=== PATIENT | female | born 1940 | race Caucasian/White ===

== ENCOUNTER 2016-08-14 05:17 | Emergency (ER) | payer OTHER, BC ==
--- NOTE | 2016-08-14 06:11 | EDPHY ---
[id number] sinus pain and pressure which has been present for the last several days which is getting progressively worse. This is associated with nasal congestion. She has a prior history of sinusitis. This morning, when she awoke from sleep she coughed up bloody mucus 1 time. She has not had any cough or fever. She does not have any sore throat. REVIEW OF SYSTEMS Constitutional: No fever, no chills. Eyes: No discharge. ENT: No sore throat. Cardiovascular: No chest pain, no palpitations. Respiratory: No cough, no shortness of breath. Gastrointestinal: No abdominal pain, no vomiting. Genitourinary: No hematuria. Musculoskeletal: No back pain. Skin: No rashes. Neurological: No headache. PMHx: Sarcoidosis, gout PHYSICAL General Appearance: Alert, no distress Eyes: Pupils equal and round no pallor or injection ENT, Mouth: Mucous membranes moist, mild maxillary sinus tenderness to palpation , posterior pharynx is clear Respiratory: There are no retractions, lungs are clear to auscultation Cardiovascular: Regular rate and rhythm Gastrointestinal: Abdomen is soft and non-tender, no masses, bowel sounds normal Neurological: A&O, moves all extremities Skin: Warm and dry, no rashes Musculoskeletal: Neck is supple non tender Extremities: symmetrical, full range of motion Psychiatric: Patient is oriented X 3, there is no agitation Source: Patient - Personal History Current Tetanus/Diphtheria Vaccine: Yes Current Tetanus Diphtheria and Acellular Pertussis (TDAP): Yes - Medical/Surgical History Hx Asthma: No Hx Chronic Respiratory Disease: Yes Hx Diabetes: Yes Hx Cardiac Disease: Yes Hx Renal Disease: No Hx Cirrhosis: No Hx Alcoholism: No Hx HIV/AIDS: No Hx Splenectomy or Spleen Trauma: No Other PMH: SARCODOSIS, D.M., GOUT, HTN, HIGH CHOLESTEROL, SLEEP APNIA, SHOULDER SURGERY - Social History Smoking Status: Never smoked Constitutional: Initial Vital Signs Temperature (C) 36.6 C 08/14/16 05:20 Heart Rate 85 08/14/16 05:20 Respiratory Rate 18 08/14/16 05:20 Blood Pressure 160/71 H 08/14/16 05:20 O2 Sat (%) 98 08/14/16 05:20 O2 Delivery Mode Room Air Allergies/Adverse Reactions: No Known Allergies Allergy (Unverified 08/14/16 05:25) Home Medications: Medication Instructions Recorded Allopurinol [Allopurinol 300 MG 300 mg PO DAILY 08/14/16 (RX)] Amoxicillin/Clavulanate Pot 875 mg PO BID #14 tab 08/14/16 [Augmentin 875 MG TAB (*)] Aspirin [Chad Chewable] 81 mg PO DAILY 08/14/16 Estrogens, Conjugated [Premarin] 08/14/16 Metformin HCl 500 mg PO 08/14/16 Valsartan/Hydrochlorothiazide 1 each PO 08/14/16 [Valsartan-Hctz 320-12.5 mg Tab] predniSONE 5 mg PO DAILY 08/14/16 Medical Decision Making - Diagnostics Imaging: Chest x-ray demonstrates peribronchial thickening, interpreted by me, radiology interpretation is pending. Differential Diagnosis: This is a 76-year-old female who presents after coughing up bloody mucus 1 time upon awakening this morning. She has no further cough. She has been suffering from sinusitis with mild epistaxis with this. She does have a history of sarcoidosis. Differential diagnosis includes sinusitis with epistaxis causing postnasal drip which produced bloody sputum, bronchiectasis, less likely pulmonary embolism. I a plan to discharge her to home with a course of Augmentin for sinusitis. I do not believe this is related to her sarcoidosis given single episode with no coughing in general. - Data Points Medications Given: Discontinued Medications Amoxicillin/Clavulanate Potassium (Augmentin 875mg) 875 mg PO EDNOW ONE PRN Reason: Protocol Stop: 08/14/16 06:15 Last Admin: 08/14/16 06:19 Dose: 875 mg Departure - Departure Disposition: Home, Routine, Self-Care Clinical Impression: Sinusitis, Coughing up blood Condition: Good Instructions: Sinusitis (ED) Additional Instructions: Please return to the emergency room if your worse in any way. You can try a saline nasal spray to help with your nasal congestion. Referrals: Ann Ochoa MD [Non Staff Provider (MD)] - As per Instructions Prescriptions: Amoxicillin/Clavulanate Pot [Augmentin 875 MG TAB (*)] 875 mg PO BID #14 tab
[2016-08-14] MEDS ORDERED: AMOXICILLIN/CLAVULANATE POT 875/125 MG TAB PO ONE (06:14)
[2016-08-14 06:27] VITALS: BP 127/66; PULSE 82; RESP 16; TEMP 98.4; O2SAT 95
--- NOTE | 2016-08-14 09:04 | DX ---
"Chest, PA and Lateral Views, at 5:14 a.m. Clinical History: 76-year-old female with a history of sarcoidosis and hemoptysis. Comparison Study: None available. Findings: The cardiac size is at the upper limits of normal. There is some bronchovascular crowding i n the left suprahilar and right lateral midlung regions, which could represent subsegmental atelectas is versus early infiltrates. Minimal linear scarring in the lateral left midlung is seen. There is no convincing focal infiltrate. There is no pleural effusion, peripheral interstitial edema, or pneumot horax. There are postcholecystectomy clips in right upper quadrant of the abdomen. There are senescen t features of the spine. There is atherosclerotic calcification of the aortic knob. There are couple of equivocal nodular opacities in the right upper lobe. Given the patient's prior history of sarcoido sis, correlation with previous imaging studies would be helpful to assess for more specific interval change. If unavailable, further follow up with CT imaging could be considered, as clinically directed . Impression: 1. Perihilar bronchitis. 2. Possible subsegmental atelectasis versus early infiltrates right lateral midlung and left suprahil ar distribution. 3. There are couple of possible small nodular opacities in the right upper lobe. Recommendation: 1. Correlation with previous studies to assess for interval change. 2. If unavailable, CT imaging could be considered. A Follow-Up Required test result has been communicated via the [employer] | Critical Result syst em on 08/14/2016 8:58, Message ID [id number]."
== END 2016-08-14 06:27 | disposition home or self-care (01) ==
DX: R04.2 Hemoptysis (principal); J32.9 Chronic sinusitis, unspecified; E11.9 Type 2 diabetes mellitus without complications; I10 Essential (primary) hypertension; Z79.82 Long term (current) use of aspirin

== ENCOUNTER → 2016-12-18 | Outpatient (CLI) | payer OTHER, BC | LOC: FIMAGING 07:42 | PROVIDERS: ATTEND Internal Medicine Critical Care Medicine | DX: D86.0 Sarcoidosis of lung (principal); I25.10 Atherosclerotic heart disease of native coronary artery without angina pectoris ==

== ENCOUNTER → 2017-04-23 | Outpatient (CLI) | payer OTHER, BC | LOC: FIMAGING 10:50 | PROVIDERS: ATTEND Internal Medicine Endocrinology, Diabetes & Metabolism | DX: Z13.820 Encounter for screening for osteoporosis (principal); M85.80 Other specified disorders of bone density and structure, unspecified site ==

== ENCOUNTER → 2017-05-21 | Outpatient (CLI) | payer OTHER, BC | LOC: FIMAGING 10:43 | PROVIDERS: ATTEND Internal Medicine | DX: Z12.31 Encounter for screening mammogram for malignant neoplasm of breast (principal) | CPT/HCPCS: G0202 ==

== ENCOUNTER → 2017-07-20 | Outpatient (CLI) | payer OTHER, BC | LOC: FLAB 10:59 | PROVIDERS: ATTEND Internal Medicine Critical Care Medicine | DX: D86.0 Sarcoidosis of lung (principal) ==

== ENCOUNTER → 2017-12-15 | Outpatient (CLI) | payer OTHER, BC | LOC: FIMAGING 08:42 | PROVIDERS: ATTEND Internal Medicine Critical Care Medicine | DX: D86.0 Sarcoidosis of lung (principal); E83.52 Hypercalcemia ==

== ENCOUNTER → 2018-04-29 | Outpatient (CLI) | payer OTHER, BC | LOC: FIMAGING 10:24 | PROVIDERS: ATTEND Internal Medicine Critical Care Medicine | DX: D86.0 Sarcoidosis of lung (principal) ==

== ENCOUNTER → 2018-06-23 | Outpatient (CLI) | payer OTHER, BC | END | disposition home or self-care (01) | LOC: FIMAGING 09:34 | PROVIDERS: ATTEND Internal Medicine | DX: Z12.31 Encounter for screening mammogram for malignant neoplasm of breast (principal) ==

== ENCOUNTER 2018-10-09 06:46 | Emergency (ER) | payer OTHER, BC ==
--- NOTE | 2018-10-09 07:20 | EDPHY ---
HPI/HX/ROS/PE/MDM Narrative: CHIEF COMPLAINT: Diarrhea, bright blood per rectum HPI: This patient is a 78-year-old female with past medical history including hypertension, hyperlipidemia, diabetes, sarcoidosis. She complains of diarrhea ongoing for 3 days with very watery stool. She additionally complains of bright red blood per rectum. No melena. She endorses history of bleeding hemorrhoids in the past. She saw Dr. Estrella, supervisor landscape, in July, who prescribed a cream for relief. She denies vomiting, abdominal pain. She has not taken any antibiotics recently. No known ill contacts. She is not anticoagulated, takes ASA 81mg. She notes she attended a dance performance at [facility] last night and was able to walk about a mile there and back without difficulty. No chest pain, shortness of breath, weakness, or other associated symptoms. REVIEW OF SYSTEMS: A comprehensive 10 system review of systems is otherwise negative aside from elements mentioned in the history of present illness and medical decision making. PMH: Hypertension, sarcoidosis, diabetes, hyperlipidemia, sleep apnea SOCIAL HISTORY: . at bedside. Lives in [place]. Retired. PHYSICAL EXAM: General:Patient is alert, in no acute distress. ENT:Eyes are normal to inspection. ENT inspection normal. Neck: Normal inspection. Full range of motion. Respiratory:No respiratory distress. Breath sounds normal bilaterally. Cardiovascular: Regular rate and rhythm. Strong peripheral pulses. Normal cap refill. Abdomen:The abdomen is nontender to palpation. There are no peritoneal signs. There are normal bowel sounds. Back: Normal to inspection. No tenderness to palpation. Skin: Normal color. No rash. Warm and dry. Extremities: Normal appearance. Full range of motion. Neuro: Oriented x3. Normal motor function. Normal sensory function. ED Course: 78 y/o female presents with 3-4 day history of diarrhea and bright red blood per rectum which she states is consistent with her history of bleeding hemorrhoids. No abdominal tenderness on exam. Plan for labs including CBC, chemistries, co-ag panel. Patient has given a stool sample, plan for stool PCR. Plan to administer 1L IV NS. Reviewed laboratory studies. These are largely unremarkable. Stool PCR pending. Stool PCR negative. On re-evaluation at 10:45am, the patient tells me "I'm going home. I don't have anything that won't heal itself." She is very pleasant and comfortable on re-exam. There is no evidence of C diff or serious infectious diarrhea. The patient has a benign abdomen. She is not anemic. She does not appear significantly dehydrated. Is certainly possible that the rectal bleeding she is attributing to hemorrhoids may in fact represent a GI bleed, but her description of it as very bright red blood in consistent with hemorrhoids is reassuring. She is not interested in further workup at this time. We discussed strict return precautions and need for outpatient follow-up. - Data Points Laboratory Results: Laboratory Results 10/09/18 07:34 10/09/18 07:34 10/09/18 10/09/18 10/09/18 07:34 07:34 07:34 WBC 9.00 10^3/uL 10^3/uL (3.80-9.50) RBC 4.24 10^6/uL 10^6/uL (4.18-5.33) Hgb 13.2 g/dL g/dL (12.6-16.3) Hct 39.1 % % (38.0-47.0) MCV 92.2 fL fL (81.5-99.8) MCH 31.1 pg pg (27.9-34.1) MCHC 33.8 g/dL g/dL (32.4-36.7) RDW 15.5 % H % (11.5-15.2) Plt Count 237 10^3/uL 10^3/uL (150-400) MPV 10.8 fL fL (8.7-11.7) Neut % (Auto) 69.0 % % (39.3-74.2) Lymph % (Auto) 17.1 % % (15.0-45.0) Toole % (Auto) 8.7 % % (4.5-13.0) Eos % (Auto) 4.4 % % (0.6-7.6) Baso % (Auto) 0.6 % % (0.3-1.7) Nucleat RBC Rel Count 0.0 % % (0.0-0.2) Absolute Neuts (auto) 6.21 10^3/uL 10^3/uL (1.70-6.50) Absolute Lymphs (auto) 1.54 10^3/uL 10^3/uL (1.00-3.00) Absolute Monos (auto) 0.78 10^3/uL 10^3/uL (0.30-0.80) Absolute Eos (auto) 0.40 10^3/uL 10^3/uL (0.03-0.40) Absolute Basos (auto) 0.05 10^3/uL 10^3/uL (0.02-0.10) Absolute Nucleated RBC 0.00 10^3/uL 10^3/uL (0-0.01) Immature Gran % 0.2 % % (0.0-1.1) Immature Gran # 0.02 10^3/uL 10^3/uL (0.00-0.10) PT 13.8 SEC SEC (12.0-15.0) INR 1.10 (0.83-1.16) APTT 33.6 SEC SEC (23.0-38.0) Sodium 140 mEq/L mEq/L (135-145) Potassium 4.1 mEq/L mEq/L (3.5-5.2) Chloride 105 mEq/L mEq/L (97-110) Carbon Dioxide 22 mEq/l mEq/l (22-31) Anion Gap 13 mEq/L mEq/L (6-14) BUN 24 mg/dL H mg/dL (7-23) Creatinine 0.9 mg/dL mg/dL (0.6-1.0) Estimated GFR > 60 Glucose 111 mg/dL H mg/dL (70-100) Calcium 10.6 mg/dL H mg/dL (8.5-10.4) Medications Given: Discontinued Medications Sodium Chloride (Ns) 1,000 mls @ 0 mls/hr IV ONCE ONE PRN Reason: Wide Open Stop: 10/09/18 07:44 Last Admin: 10/09/18 07:44 Dose: 1,000 mls Microbiology Results: MICROBIOLOGY 10/09/18 07:25 Stool Gastrointestinal Tract Panel (PCR) - Final No Organism Detected By Pcr General Initial Vital Signs: Initial Vital Signs Temperature (C) 36.6 C 10/09/18 06:56 Heart Rate 90 10/09/18 06:56 Respiratory Rate 16 10/09/18 06:56 Blood Pressure 154/73 H 10/09/18 06:56 O2 Sat (%) 95 10/09/18 06:56 O2 Delivery Mode Room Air Allergies/Adverse Reactions: No Known Allergies Allergy (Unverified 08/14/16 05:25) Home Medications: Medication Instructions Recorded Allopurinol 10/09/18 Losartan Potassium 10/09/18 Metformin HCl 10/09/18 SIMVASTATIN 10/09/18 Departure - Departure Disposition: Home, Routine, Self-Care Clinical Impression: Diarrhea, Bleeding hemorrhoid Instructions: Acute Diarrhea (ED) Additional Instructions: Follow up with gastroenterology. Stay well hydrated. Return to the Emergency Department for abdominal pain, fever, weakness or fainting, severe vomiting or diarrhea, or other worsening of condition. Referrals: Ann Ochoa MD [Primary Care Provider] - As per Instructions Khris Estrella MD [Medical Doctor] - As per Instructions Report Scribed for: Khris Prado Report Scribed by: Aspen Hdz Date of Report: 10/09/18 Time of Report: 07:50 Physician Review and Approval Statement: Portions of this note were transcribed by an ED scribe. I personally performed the history, physical exam, and medical decision making; and confirm the accuracy of the information in the transcribed note.
[2018-10-09] MEDS ORDERED: NS 1,000 ML IV ONE (07:43)
[2018-10-09 07:48] LABS: PLATELET COUNT 237 10^3/uL (150-400)
[2018-10-09 07:56] LABS: INR 1.1 (0.83-1.16); PROTIME(PATIENT) 13.8 SEC (12.0-15.0)
[2018-10-09 11:06] VITALS: BP 139/76
== END 2018-10-09 11:05 | disposition home or self-care (01) ==
DX: R19.7 Diarrhea, unspecified (principal); K64.9 Unspecified hemorrhoids; I10 Essential (primary) hypertension; E11.9 Type 2 diabetes mellitus without complications